=== PATIENT | female | born 1995 | race Caucasian/White ===

== ENCOUNTER 2017-10-15 06:29 | Emergency (ER) | payer BC, SELFPAY ==
[2017-10-15 06:34] VITALS: BP 122/73; PULSE 98; RESP 16; TEMP 36.7; O2SAT 97
--- NOTE | 2017-10-15 07:10 | ED.GENADUL_ITS ---
Disposition Clinical Impression: Superficial vein thrombosis Disposition: HOME Condition: Stable Instructions: Superficial Thrombophlebitis (ED), Deep Venous Thrombosis (ED), Rivaroxaban (By mouth) Additional Instructions: Please return immediately to the emergency department if you develop any new or worsening symptoms or if you become otherwise concerned. It is extremely important that you make an appointment to be seen by your primary care doctor within the next 1-2 weeks in follow-up for this visit. Please do not take aspirin, ibuprofen, or other nonsteroidal anti-inflammatory drugs while taking rivaroxaban. Prescriptions: Rivaroxaban [Xarelto] 10 mg PO DAILY #30 tablet Medical Decision Making - Lab Data Laboratory Tests 10/15/17 10/15/17 10/15/17 08:30 08:30 08:30 WBC 6.81 RBC 4.47 Hgb 13.6 Hct 39.8 MCV 89.0 MCH 30.4 MCHC 34.2 RDW 13.2 Plt Count 250 MPV 10.8 Immature Gran % 0.1 Neutrophils % 55.0 Lymphocytes % 32.9 Monocytes % 10.6 Eosinophils % 1.3 Basophils % 0.1 Absolute Neutrophils 3.74 Absolute Lymphocytes 2.24 Absolute Monocytes 0.72 H Absolute Eosinophils 0.09 Absolute Basophils 0.01 PT 9.3 INR 1.0 Sodium 139 Potassium 3.9 Chloride 106 Carbon Dioxide 21.9 Anion Gap 11.1 H BUN 14 Creatinine 0.64 Estimated GFR/1.73 m2 >= 60.00 Glucose 98 Calcium 8.8 Magnesium 2.2 Total Bilirubin 0.2 AST 21 ALT 49 Alkaline Phosphatase 99 Creatine Kinase 84 Total Protein 7.8 Albumin 3.9 Results reviewed for labs ordered during visit: Yes - Radiology Data Left lower extremity ultrasound per radiology: There is a roughly 10 cm area in the mid posterior tibial vein which does not show compression. The remaining deep venous system is free of thrombus. The saphenous vein is also free of thrombus. Impression: Area of noncompressibility in the mid posterior tibial vein consistent with calf vein thrombosis. - Medical Decision Making Maria Fernanda Lubin is a 22 y/o woman with h/o PCO S on Depo-Provera, hidradenitis suppurativa on Humira presenting to the emergency department with 5 days of unremitting left calf pain without history of trauma or other inciting event. On exam patient has diffuse tenderness of the left calf, DP pulses intact and symmetric, motor exam of bilateral lower extremities normal. Exam/history not consistent with cellulitis, compartment syndrome. Concern for DVT, possible myositis. Plan for screening labs, ultrasound. Labs nondiagnostic. Ultrasound shows 10 cm SVT. Given length of thrombus, patient is not considered low risk for thromboembolism, anticoagulation is indicated. Will start rivaroxaban. I did call patient's PCP, Tia Hernandez , and related to her patient's diagnosis and need for follow-up. Lengthy discussion with patient regarding rivaroxaban precautions, return to emergency room precautions and importance of outpatient follow-up with her PCP. Patient is amenable to the plan. History of Present Illness - General Chief complaint: Orthopedic Stated complaint: CALF PAIN Time Seen by Provider: 10/15/17 07:10 Source: patient, RN notes reviewed Mode of arrival: ambulatory Limitations: no limitations - History of Present Illness Initial comments: Maria Fernanda Lubin is a 22-year-old woman with history of hidradenitis suppurativa on Humira, PCOS on Depo-Provera shot, chronic migraines presenting to the emergency department with left-sided calf pain. Patient reports that 5 days ago patient woke up with pain in her left calf. Had had no symptoms prior to that. Patient reports the pain is constant and never goes away. It does occasionally worsen and become throbbing, but is always present as an ache in the back of her calf. Patient reports that pain has begun to radiate up into the back of her thigh. Pain is unchanged with ranging her left ankle or left knee. She has never had similar symptoms in the past. She denies having any other pain. There was no trauma or skin wound that patient can recall. Patient denies any fever in the past week. She denies shortness of breath, cough, change in appetite, vomiting, diarrhea, numbness, tingling, weakness. She feels otherwise well in her usual state of health. No recent surgery. No recent travel. No personal or family history of blood clots. Patient lives in [place] and has a PCP there, and is here today visiting her parents. - Related Data Medroxyprogesterone Acetate [Depo-Provera] 150 mg IM .[id number] 08/23/15 Adalimumab [Humira] 40 mg SC Q7D 12/14/16 Methocarbamol 750 mg PO Q6H PRN PRN #20 tablet 12/18/16 Albuterol Sulfate [Proair Hfa] 2 puff IH Q4H PRN #1 inhaler 12/20/16 Clindamycin Phosphate [CLINDAMYCIN PHOS 1%] 60 ml TP script 01/18/17 Lorazepam 0.5 mg PO DAILY #20 01/18/17 Citalopram [CeleXA] 10 mg PO DAILY #90 tab-cap 05/04/17 Rivaroxaban [Xarelto] 10 mg PO DAILY #30 tablet 10/15/17 Topiramate [Topamax] 50 mg PO HS 10/15/17 Allergies Allergy/AdvReac Type Severity Reaction Status Date / Time aloe vera Allergy Severe HIVES Unverified 10/15/17 06:42 Review of Systems Constitutional: denies: fever Eyes: denies: eye pain ENT: denies: ear pain, throat pain, dental pain Respiratory: denies: cough, shortness of breath Cardiovascular: denies: chest pain Endocrine: denies: increased hunger, increased thirst Gastrointestinal: denies: abdominal pain, vomiting, diarrhea Musculoskeletal: myalgia (left calf). denies: back pain, arthralgia Skin: denies: rash, lesions Neurological: denies: headache, weakness, numbness Past Medical History - Past Medical History Medical history: asthma Migraine headache, pilonidal cyst, hidradenitis suppurativa on Humira, latent TB , PCOS - Social History Smoking status: never smoker Alcohol use: occasionally Drug use: none General Exam - General Limitations: no limitations General appearance: alert, in no apparent distress, other (Pleasant, conversing normally, well and nontoxic appearing) - Head Head exam: Present: atraumatic, normocephalic, normal inspection - Eye Eye exam: Absent: scleral icterus, conjunctival injection Pupils: Absent: miosis, mydriatic - ENT ENT exam: Present: mucous membranes moist - Neck Neck exam: Present: normal inspection - Respiratory Respiratory exam: Present: normal lung sounds bilaterally. Absent: respiratory distress - Cardiovascular Cardiovascular Exam: Present: regular rate, normal rhythm, normal heart sounds - Extremities Exam Extremities exam: Present: normal inspection, full ROM (knee and ankle with painless FROM), tenderness (mild popliteal TTP. No thigh TTP. ), normal capillary refill, calf tenderness (Diffuse posterior calf tenderness with deep palpation. No posterior calf TTP to light palpation. ), other (no skin changes to LLE. Normal exam of the RLE. ). Absent: pedal edema, joint swelling - Back Exam Back exam: Present: normal inspection. Absent: rash noted - Neurological Exam Neurological exam: Present: alert, normal gait, other (Grossly nonfocal, normal tone). Absent: altered, motor sensory deficit (normal motor 5/5 b/l LEs. ) - Psychiatric Psychiatric exam: Present: normal affect, normal mood - Skin Skin exam: Present: warm, dry, intact, normal color. Absent: rash Course Vital Signs - 24 hr 10/15/17 06:34 Temperature 36.7 C Pulse 98 H Respiratory 16 Rate Blood Pressure 122/73 Pulse Oximetry 97
--- NOTE | 2017-10-15 07:25 | DI.REPORT_ITS ---
SYMPTOM/DIAGNOSIS: LEFT CALF PAIN, R/O DVT LEFT LOWER EXTREMITY ULTRASOUND: There is a roughly 10 cm area in the mid posterior tibial vein which does not show compression. The remaining deep venous system is free of thrombus. The saphenous vein is also free of thrombus. IMPRESSION: Area of non-compressibility in the mid posterior tibial vein consistent with calf vein thrombosis.
[2017-10-15 08:45] LABS: Abs Immature Grans 0.01 k/cumm (0.0-0.09); Absolute Basophil Count 0.01 k/cumm (0.0-0.2); Absolute Eosinophil Count 0.09 k/cumm (0.0-0.7); Absolute Lymphocyte Count 2.24 k/cumm (1.2-3.4); Absolute Monocyte Count 0.72 k/cumm (0.11-0.7); Absolute Neutrophil Count 3.74 k/cumm (1.2-6.7); Basophils % 0.1; Eosinophils % 1.3; HCT 39.8 % (36.0-46.0); HGB 13.6 g/dL (12.0-15.5); Immature Grans % 0.1; Lymphocytes % 32.9; Mean Corp. HGB Concentration 34.2 g/dL (32.0-36.0); Mean Corpuscular Hemoglobin 30.4 pg (27.0-33.0); Mean Platelet Volume 10.8 fL (8.0-11.0); Monocytes % 10.6; Platelet Count 250 x1000/uL (130-400); RBC 4.47 m/cumm (4.00-5.20); RBC Distribution Width 13.2 % (11.7-14.6); White Blood Cell Count 6.81 k/cumm (4.4-10.8)
[2017-10-15 08:58] LABS: Prothrombin Time 9.3 sec (9.3-10.8)
[2017-10-15 09:00] LABS: ALT 49 U/L (12-78); AST 21 U/L (15-37); Albumin 3.9 g/dL (3.4-5.0); Alkaline Phosphatase 99 U/L (46-116); Anion Gap 11.1 mmol/L (3-11); BUN 14 mg/dL (7-18); Bilirubin, Total 0.2 mg/dL (0.2-1.0); CO2 21.9 mmol/L (21.0-32.0); CREATININE 0.64 mg/dL (0.55-1.02); Calcium 8.8 mg/dL (8.5-10.1); Chloride 106 mmol/L (98-107); Creatine Kinase 84 U/L (26-192); Glucose 98 mg/dL (70-100); Magnesium 2.2 mg/dL (1.8-2.4); Potassium 3.9 mmol/L (3.5-5.1); Sodium 139 mmol/L (136-145); Total Protein 7.8 g/dL (6.4-8.2)
[2017-10-15] MEDS: Rivaroxaban 10 MG TABLET PO (09:30)
== END 2017-10-15 09:39 | disposition home or self-care (01) ==
PROVIDERS: Emergency Provider Student in an Organized Health Care Education/Training Program
DX: I82.812 Embolism and thrombosis of superficial veins of left lower extremity (principal)
CPT/HCPCS: 36415; 80053; 82550; 99284; 83735; 85025; 85610; 93971; 99285

== ENCOUNTER 2018-03-04 11:18 | Emergency (ER) | payer BC, SELFPAY ==
[2018-03-04 11:48] VITALS: BP 131/89; PULSE 100; RESP 20; TEMP 36.5; O2SAT 100
--- NOTE | 2018-03-04 12:08 | W.ED.GENAD ---
Discharge Plan Disposition Patient Disposition: HOME Condition: Stable Discharge Details Chief Complaint: RashLesion Clinical Impression: Rash Primary Care Provider: Lavinia,Local ED Provider: Cheyenne Turpin Home Meds and New Rx's Prescriptions: New triamcinolone acetonide 0.1 % cream 1 applic TP TID Qty: 30 RF: 0 Continued ProAir HFA 8.5 GM HFA aerosol inhaler 2 puff Inhalation Q4H PRN Qty: 1 RF: 3 lorazepam 0.5 MG tablet 0.5 mg PO DAILY Qty: 20 RF: 0 clindamycin phosphate 60 ML lotion 60 ml Topical RF: 0 citalopram 10 MG tablet 10 mg PO DAILY Qty: 90 RF: 3 medroxyprogesterone [Depo-Provera] 150 MG/ML suspension 150 mg IM .[id number] RF: 0 clindamycin-benzoyl peroxide [Benzaclin] 1-5 % Gel 1 appful Topical PRN PRNRF: 0 triamcinolone acetonide 0.1 % Lotion 1 appful Topical PRN PRNRF: 0 Humira 40 MG/0.8 ML syringe kit 40 mg Sub-Q Q7D RF: 0 Discontinued amitriptyline 50 mg Tablet 50 mg PO HS RF: 0 Discharge Instructions Instructions: Triamcinolone (On the skin), Acute Rash (ED) Additional Instructions: Please return immediately to the emergency department if you develop any new or worsening symptoms or if you become otherwise concerned. It is extremely important that you make an appointment to be seen by a computer networking instructor adjunct this week in follow-up for this visit. Discharge Data Discharge Date/Time-TO BE ENTERED AT DEPARTURE: 03/04/18 16:01 Medical Decision Making Maria Fernanda Lubin is a 23 y/o woman with h/o hidradenitis suppurativa who presented to the emergency department with rash since 02/26 without associated symptoms or clear triggers. On exam Pt is very well and non-toxic appearing. Rash consisting of well circumscribed erythematous plaques and papules without surrounding erythema over chest, scant erythematous papules to arms. No apparent involvement of the conjunctiva or oral mucosa on exam. Concern for contact dermatitis vs erythema multiforme vs wei cally syndrome. Exam/hx not c/w acute emergent infectious process or bacterial superinfection, TEN. Plan for screening labs, derm consult. Labs okay. Given concern for possible SJS, photo of rash without identifying information taken with Pt's permission. I discussed Pt presentation with Louie Bowman of dermatology at [facility], who reviewed the photo and recommended topical steroid cream, d/c amitriptyline, discharge, return to the ED for any worsening. No indication for admission/further emergent eval at this time. I had a lengthy discussion with Pt re: early SJS had not been ruled out, need to RTED immediately for any worsening, d/c amitriptyline, and importance of outpt f/u with dermatology this week. Pt verbalized understand of and was amenable to the plan. Medical Records Medical records reviewed: Yes I reviewed the patient's medical records. Lab Data Lab results reviewed: Yes I reviewed the patient's lab results. Laboratory Tests Range/Units 03/04/18 03/04/18 14:15 14:15 WBC (4.4-10.8) k/cumm 9.05 RBC (4.00-5.20) m/cumm 4.80 Hgb (12.0-15.5) g/dL 14.4 Hct (36.0-46.0) % 42.8 MCV (80-95) fL 89.2 MCH (27.0-33.0) pg 30.0 MCHC (32.0-36.0) g/dL 33.6 RDW (11.7-14.6) % 13.5 Plt Count (130-400) x1000/uL 317 MPV (8.0-11.0) fL 10.2 Sodium (136-145) mmol/L 140 Potassium (3.5-5.1) mmol/L 3.4 L Chloride (98-107) mmol/L 102 Carbon Dioxide (21.0-32.0) mmol/L 25.3 Anion Gap (3-11) mmol/L 12.7 H BUN (7-18) mg/dL 16 Creatinine (0.55-1.02) mg/dL 0.77 Estimated GFR/1.73 m2 (mL/min/1.73m2) >= 60.00 Glucose (70-100) mg/dL 81 Calcium (8.5-10.1) mg/dL 9.5 Total Bilirubin (0.2-1.0) mg/dL 0.6 AST (15-37) U/L 44 H ALT (12-78) U/L 99 H Alkaline Phosphatase (46-116) U/L 99 Total Protein (6.4-8.2) g/dL 8.6 H Albumin (3.4-5.0) g/dL 4.4 HPI General Mode of arrival: ambulatory. Date/Time Provider Initiated Documentation: 03/04/18 12:08. Limitations to Documentation: no limitations. Information obtained by: patient, RN notes reviewed and old records reviewed. HPI Narrative: Maria Fernanda Lubin is a 23 y/o woman with h/o hidradenitis suppurativa on humira, asthma presenting to the emergency department with rash. Pt reports that she has had an itchy rash since 02/26. Rash began on her chest, has been slowly spreading to her arms. Pt also reports that she has one spot on her upper eyelid that she noticed this am. All areas are itchy. She has had several areas in her mouth that feel sore, but has not noticed any visible changes to her mouth or lips. No eye redness or pain. Pt feels well and otherwise in her usual state of health. No new exposures, no recent travel, no recent illness. Pt does report that she starting taking amytriptyline for migraines in 12/20, and her dose was increased 2-3 weeks prior to onset of rash. No other new meds or med changes. No associated symptoms. Has been eating and drinking as usual. No drug use. Related Data Home Medications Medication Instructions Recorded Confirmed medroxyprogesterone [Depo-Provera] 150 mg IM .[id number] 08/23/15 03/04/18 Humira 40 mg SUB-Q Q7D 12/14/16 03/04/18 ProAir HFA 2 puff INHALATION Q4H PRN #1 12/20/16 03/04/18 inhaler clindamycin phosphate 60 ml TOPICAL script 01/18/17 lorazepam 0.5 mg PO DAILY #20 01/18/17 03/04/18 citalopram 10 mg PO DAILY #90 tab-cap 05/04/17 03/04/18 clindamycin-benzoyl peroxide 1 appful TOPICAL PRN PRN 03/04/18 03/04/18 [Benzaclin] triamcinolone acetonide 1 appful TOPICAL PRN PRN 03/04/18 03/04/18 triamcinolone acetonide 1 applic TP TID #30 gm 03/04/18 Previous Rx's Medication Instructions Recorded ProAir HFA 2 puff INHALATION Q4H PRN #1 12/20/16 inhaler lorazepam 0.5 mg PO DAILY #20 01/18/17 citalopram 10 mg PO DAILY #90 tab-cap 05/04/17 triamcinolone acetonide 1 applic TP TID #30 gm 03/04/18 Allergies Allergy/AdvReac Type Severity Reaction Status Date / Time aloe vera Allergy Severe HIVES Unverified 03/04/18 11:51 General Stated Complaint: RashLesion LOUISE: 4 Review of Systems Review of Systems Constitutional: denies fevers Eyes: denies eye pain ENT: denies facial pain, dental pain, sore throat Cardiovascular: denies chest pain, edema Respiratory: denies SOB, cough GI: denies abdominal pain, vomiting, diarrhea : denies flank pain MSK: denies back pain, neck pain, arthralgias, myalgias Skin: reports rash Neuro: denies headaches, lightheadedness, weakness PFSH Medical History Anxiety Asthma Heart murmur Migraine with aura Pilonidal cyst Surgical History Excision, Pilonidal Cyst (01/25/16) Tooth extraction Family History Mother No problems noted. Father Essential hypertension Heart disease Hyperlipidemia Grandfather Diabetes Personal history of malignant neoplasm Grandfather Essential hypertension Personal history of malignant neoplasm Heart disease Asthma Grandmother Personal history of malignant neoplasm Grandmother Depression Heart disease Maternal Aunt Down's syndrome Maternal Aunt Anxiety Maternal Uncle Substance abuse Other Alcohol abuse Mental disorder Myocardial infarction Social History Smoking/Tobacco Use Status: Never Exam Narrative Exam Narrative: Constitutional: well and [id number], pleasant, conversing normally HENT: head atraumatic, normocephalic normal inspection, mucous membranes moist, no lesions or scaling of oral mucosa or lips. Eyes: conjunctiva normal, sclera normal, pupils 3mm b/l Neck: no stridor, normal ROM, trachea midline Chest: see skin exam Resp: normal work of breathing, LCTAB Cardio: normal rate, normal rhythm, no murmur appreciated Back: normal inspection, no rash Skin: warm, dry, normal color, rash consisting of erythematous papules and plaques <2cm across chest, scant erythematous papules on arms and single papule on left upper outer eyelid. Chest lesions with central scaling, Pt reports that has occurred with itching. No vesicles or bullae. Neuro: alert, not altered, grossly non-focal, normal tone Ext: no edema Psych: normal mood, normal affect, normal behavior Course Vital Signs Temperature 36.5 C 03/04/18 11:48 Pulse 100 H 03/04/18 11:48 Respiratory Rate 20 03/04/18 11:48 Blood Pressure 131/89 03/04/18 11:48 Pulse Oximetry 100 03/04/18 11:48 Temperature 36.5 C 03/04/18 11:48 Temperature Source Temporal Artery Scan 03/04/18 11:48 Pulse 100 H 03/04/18 11:48 Respiratory Rate 20 03/04/18 11:48 Respiratory Effort Non-Labored 03/04/18 11:48 Blood Pressure 131/89 03/04/18 11:48 Blood Pressure Position Sitting 03/04/18 11:48 Pulse Oximetry 100 03/04/18 11:48 Oxygen Delivery Method Room Air 03/04/18 11:48 Oxygen Flow Rate 0 03/04/18 11:48 Pain Level 3 03/04/18 11:48
--- NOTE | 2018-03-04 13:54 | NUR.NOTE ---
This RN attempted IV access X2, unsuccessfully.
[2018-03-04 14:23] LABS: HCT 42.8 % (36.0-46.0); HGB 14.4 g/dL (12.0-15.5); Mean Corp. HGB Concentration 33.6 g/dL (32.0-36.0); Mean Corpuscular Volume 89.2 fL (80-95); Mean Platelet Volume 10.2 fL (8.0-11.0); Platelet Count 317 x1000/uL (130-400); RBC Distribution Width 13.5 % (11.7-14.6); White Blood Cell Count 9.05 k/cumm (4.4-10.8)
[2018-03-04 14:32] VITALS: BP 127/78; PULSE 71; RESP 16; TEMP 36.9; O2SAT 98
[2018-03-04 14:56] LABS: ALT 99 U/L (12-78); AST 44 U/L (15-37); Albumin 4.4 g/dL (3.4-5.0); Alkaline Phosphatase 99 U/L (46-116); Anion Gap 12.7 mmol/L (3-11); BUN 16 mg/dL (7-18); Bilirubin, Total 0.6 mg/dL (0.2-1.0); CO2 25.3 mmol/L (21.0-32.0); CREATININE 0.77 mg/dL (0.55-1.02); Calcium 9.5 mg/dL (8.5-10.1); Chloride 102 mmol/L (98-107); Glucose 81 mg/dL (70-100); Potassium 3.4 mmol/L (3.5-5.1); Sodium 140 mmol/L (136-145); Total Protein 8.6 g/dL (6.4-8.2)
== END 2018-03-04 16:01 | disposition home or self-care (01) ==
PROVIDERS: Emergency Provider Student in an Organized Health Care Education/Training Program
DX: R21 Rash and other nonspecific skin eruption (principal)
CPT/HCPCS: 36415; 80053; 85027; 99283

== ENCOUNTER 2022-07-17 08:22 | Day surgery (SDC) | payer OTHER, SELFPAY ==
[2022-07-17] VITALS (10 sets, daily range): BP systolic 89–109; BP diastolic 53–78; PULSE 62–85; RESP 12–20; TEMP 36.4–37.1; O2SAT 95–100; BMI 31.8
[2022-07-17] MEDS: Lactated Ringers 1,000 ML 100 ML IV (09:20)
--- NOTE | 2022-07-17 09:21 | W.ANESPRE ---
General Info Date of Service Date Performed: 07/17/22 Height: 5 ft 8 in Weight: 95.2 kg Body Mass Index (BMI): 31.8 Surgical Procedure: Operation Date: 07/17/22 11:25 Proposed Procedure Side Surgeon p Tonsillectomy & Adenoidectomy Tereso Jackson MD Meds Allergies and Home Medications Allergies Allergy/AdvReac Type Severity Reaction Status Date / Time aloe vera Allergy Severe HIVES Verified 07/17/22 08:57 citalopram Allergy Verified 07/17/22 08:57 doxycycline Allergy Verified 07/17/22 08:57 fluoxetine Allergy Verified 07/17/22 08:57 nickel Allergy Verified 07/14/22 12:22 pineapple Allergy Verified 07/14/22 12:22 spinach Allergy Verified 07/14/22 12:22 Home Medication Medication Instructions Recorded adalimumab 40 mg/0.8 mL 40 mg subcut Q7D 12/14/16 subcutaneous syringe kit (Humira) Saccharomyces boulardii 250 mg 250 mg PO BID 06/26/22 capsule (Daily Probiotic (S. boulardii)) alprazolam 0.5 mg tablet 0.5 mg PO QHS PRN anxiety 06/26/22 atomoxetine 25 mg capsule 25 mg PO ONCE 06/26/22 eptinezumab-jjmr 100 mg/mL 100 mg IV [id number] 06/26/22 intravenous solution (Vyepti) fexofenadine 180 mg tablet 180 mg PO DAILY 06/26/22 fluconazole 150 mg tablet 150 mg PO Q3D 06/26/22 (Diflucan) hydrocortisone 1 % topical 1 applic topical BID PRN itching 06/26/22 ointment (Anti-Itch (hydrocortisone)) levonorgestrel 17.5 mcg/24 hrs 1 device intrauterine ONCE 06/26/22 (5yrs) 19.5mg intrauterine device melatonin 3 mg capsule 3 mg PO HS PRN 06/26/22 multivitamin (Daily Multi-Vitamin 1 tab PO DAILY 06/26/22 tablet) ondansetron HCl 4 mg tablet 4 mg PO Q8H 06/26/22 ubrogepant 100 mg tablet 100 mg PO ONCE 06/26/22 valacyclovir 500 mg tablet 500 mg PO DAILY 06/26/22 Current Visit Medications: Current Medications Generic Name Dose Route Start Last Admin Trade Name Freq PRN Reason Stop Dose Admin Ringer's Solution 1,000 mls @ 100 mls/hr 07/17/22 06:00 07/17/22 09:20 IV 08/13/22 23:59 100 mls/hr INFUSION SHANIQUA Administration Cefazolin Sodium/Dextrose 2 gm in 50 mls @ 100 mls/hr 07/17/22 06:00 Ancef Duplex IVPB 08/13/22 23:59 PREOP SHANIQUA Tranexamic Acid 1,000 mg/ 60 mls @ 360 mls/hr 07/17/22 06:00 Sodium Chloride IVPB 07/17/22 18:00 PREOP SHANIQUA IV Miscellaneous Supplies 1 each 07/17/22 06:00 Iv Access IV 08/13/22 23:59 DIRECTED SHANIQUA Sodium Chloride 0 ml 07/17/22 06:00 Normal Saline Flush 10 Ml Syr IV 08/13/22 23:59 PRN PRN Sodium Chloride 0 ml 07/17/22 06:00 Normal Saline 10 Ml Vial IJ 08/13/22 23:59 DIRECTED PRN Sterile Water 0 ml 07/17/22 06:00 Water,Injection,Sterile 10 Ml Vial IJ 08/13/22 23:59 DIRECTED PRN PFSH Medical History Medical History ADHD (attention deficit hyperactivity disorder) Anxiety Anxiety disorder Asthma Dysmenorrhea Erythema multiforme bullosum Heart murmur Per pt. 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 Major depressive disorder with single episode Migraine with aura Mild intermittent asthma without complication PCOS (polycystic ovarian syndrome) Pilonidal cyst Presence of IUD Suppurative hidradenitis TMJ arthralgia Tonsillar enlargement Surgical History Surgical History Excision, Pilonidal Cyst (01/25/16) Tooth extraction extraction 4 wisdom teeth Tobacco Smoking/Tobacco Use Status: Never Alcohol Alcohol Intake: current Alcohol intake frequency: a few times a month Substance Use Substance use: Never Substance use type: does not use Vital Signs and Lab Results Vital Signs Most Recent Vital Signs in EMR: Most Recent Vital Signs Temp Pulse Resp BP Pulse Ox 36.4 C L 85 18 104/62 100 07/17/22 09:02 07/17/22 09:02 07/17/22 09:02 07/17/22 09:02 07/17/22 09:02 Lab Results Blood Type / Crossmatch: No Data to Display Complete Blood Count: No Data to Display Complete Metabolic Panel: No Data to Display Liver Function Panel: No Data to Display Coagulation Panel: No Data to Display Cardiac Panel: No Data to Display Arterial Blood Gas: No Data to Display Venous Blood Gas: No Data to Display Pancreas Panel: No Data to Display Thyroid Panel: No Data to Display Infectious Disease: No Data to Display Blood Cultures: No Data to Display Toxicology Panel: No Data to Display Panel: No Data to Display Anesthesia Assessment and Plan Anesthesia History Personal History: No History of Anesthesia Complications Family History: No Family History of Anesthesia Complications Exercise Tolerance Exercise Tolerance: Metabolic Equivalents>4 Cardiac & Pulmonary Exam Cardiac Exam: Normal S1/S2 Heart Sounds Pulmonary Exam: Clear Bilateral Breath Sounds Implantable Cardiac Device Does patient have a Pacemaker or an ICD?: No Airway Exam Known Difficult Airway: No Mallampati Class: 2 Mouth Opening: Normal (> 3cm) Thyromental Distance: Greater than 3 cm Neck Range of Motion: Full ROM Neck Circumference: Normal Teeth Condition: Normal Dentition ASA Classification ASA Score: ASA 2 Emergency Case?: No NPO Status NPO Status: NPO Clears >2 hours, Solids >8 hours Status Status: Pt. refuses testing, she was counseled on anesthesia risks Anesthesia Plan Resuscitation Status: Full Code Anesthesia Technique: General Anesthesia Airway Planned: Endotracheal Tube Monitors Used: Standard Monitors Preoperative Comments:: 27 yo female for TA. Sig PMHx: migraine, asthma, ADHD, anxiety, depression, never smoker, occ EtOH. Has had a cough for months, still has the slight tail end of it.
--- NOTE | 2022-07-17 11:42 | PDOC.DSDIS_ITS ---
Date of service: 07/17/22 Time of Service: 11:44 Discharge Plan Disposition Patient Disposition: Home Discharge Details Reason For Visit: Tonsillectomy Attending Provider: Tereso Jackson Primary Care Provider: Genia Cadena Home Meds and New Rx's Prescriptions: New amoxicillin 400 mg/5 mL suspension for reconstitution 800 mg PO BID 10 Days Qty: 200 0RF No Action hydrocortisone [Anti-Itch (HC)] 1 % ointment 1 applic topical BID PRN (Reason: itching) levonorgestrel 17.5 mcg/24 hrs (5 yrs) 19.5 mg intrauterine device 1 device intrauterine ONCE Rx Instructions: as a single dose melatonin 3 mg capsule 3 mg PO HS PRN ubrogepant 100 mg tablet 100 mg PO ONCE Rx Instructions: as a single dose; may repeat once in >=2 hours after first dose if needed fexofenadine 180 mg tablet 180 mg PO DAILY ondansetron HCl 4 mg tablet 4 mg PO Q8H alprazolam 0.5 mg tablet 0.5 mg PO QHS PRN (Reason: anxiety) valacyclovir 500 mg tablet 500 mg PO DAILY Vyepti 100 mg/mL solution 100 mg IV [id number] Rx Instructions: administer over 30 mins Saccharomyces boulardii [Daily Probiotic (S. boulardii)] 250 mg capsule 250 mg PO BID multivitamin [Daily Multi-Vitamin] Tablet 1 tab PO DAILY atomoxetine 25 mg capsule 25 mg PO ONCE fluconazole [Diflucan] 150 mg tablet 150 mg PO Q3D Humira 40 MG/0.8 ML syringe kit 40 mg Sub-Q Q7D Discharge Instructions Additional Instructions: My cell phone number is [phone]. Please call with any concerns or problems. If you are unable to reach me, and feel this is an emergency, please proceed to the emergency room or call 911 Stand Alone Forms: ENT- T&A Instr. Renetta Referrals: Tereso Jackson MD [ [facility] STAFF PHYSICIAN] - (1 month, please call for appointment prior to patient's departure) Discharge Orders Discharge Orders: Discharge Order (Routine); Ordered 07/17/22 Ordered By: Tereso Jackson
[2022-07-17] MEDS: ceFAZolin 2 GM/50 ML BAG IVPB (11:50)
--- NOTE | 2022-07-17 12:15 | TONSIL_PTH ---
PATIENT: Maria Fernanda Lubin LOC: [facility] U#:[id number] AGE/SX: 27/F ROOM: RE07/17/[address]: Tereso Jackson MD : 1995 BED: DIS: 07/17/2022 SPEC #: [id number] RECD: 07/17/22 13:17 STATUS: MIRNA REQ #: [id number] SYD: 07/17/22 12:[address]: Tereso Jackson DEPT: Surgical Specimen RECD BY: Debo Champagne ENTERED: 07/17/22 13:17 SP TYPE: TONSIL OTHR DR: Genia Cadena Tissues: 1 - TONSIL AGE 17 & OVER 2 - TONSIL AGE 17 & OVER Procedures: GROSS AND MICRO LEVEL 3 Comments: [id number]
--- NOTE | 2022-07-17 12:39 | W.PM.OP ---
Date of service: 07/17/22 Time of Service: 12:39 Operative Note Operative Note DATE OF PROCEDURE: 07/17/22 PRE-OP DIAGNOSIS: Chronic tonsillitis, tonsillar hypertrophy POST-OP DIAGNOSIS: same PROCEDURE: Tonsillectomy SURGEON: Tereso Jackson ANESTHESIA TYPE: General LMA/ETT Refer to Anesthesia Record ESTIMATED BLOOD LOSS: 100 PATHOLOGY: other (Tonsils) COMPLICATIONS: None Patient was transported to: PACU Patient's condition: stable Indications: Patient with the above problems. This is proving medically recalcitrant and chronic. Options were explained to the family regarding further management. She elected to develop a procedure. Consent was filled out and signed prior to surgery. H&P was reviewed. Risks of narcotics were discussed including addiction and respiratory depression. Findings: 4+ tonsils, atrophic adenoids, palate intact to inspection and palpation. Procedure Description: After obtaining an adequate level of general endotracheal anesthesia the patient was positioned in a supine position and prepped and draped in appropriate fashion. Valencia Devon mouthgag was carefully introduced into the oral cavity and opened revealing soft and hard palate which were examined revealing no evidence of recurrent cleft palate. Each tonsil was pulled medially and posteriorly and 0.25 with 1: 200,000 Marcaine with epinephrine was injected in the submucosal plane around the tonsils bilaterally. Adenoids were examined revealing no significant adenoid. 12 blade was used to incise mucosa along the superior, anterior, and posterior edges of the tonsil. A Meliza elevator was used to disarticulate the tonsil from the superior tonsillar fossa and then a Montalvo blade used to strip the tonsil free from the tonsillar fossa down to the inferior pole at which point, tonsillar snare was used to amputate the tonsil from the tonsillar fossa. Once has been accomplished bilaterally electrocautery suction tip catheter set on 15 W coagulation was used to achieve relative hemostasis. Valsalva was performed revealing no further bleeding. Valencia-Devon mouth gag was relaxed and removed revealing no significant bleeding. Valencia Devon mouthgag was then relaxed and removed and the patient was then awakened and extubated by anesthesia and taken recovery room in stable condition. I was present throughout the entire case.
[2022-07-17] MEDS: HYDROmorphone 2 MG/ML SYR IVP (13:04)
[2022-07-17] MEDS: Normal Saline 10 ML VIAL IJ (13:04)
--- NOTE | 2022-07-17 13:17 | W.ANESPOSTOP ---
Postoperative Evaluation Date, Time and Location Date Performed: 07/17/22 Time Performed: 13:17 Patient Location: PACU Vital Signs Most Recent Imported Vital Signs: Most Recent Vital Signs Temp Pulse Resp BP Pulse Ox 37.1 C 66 12 98/57 L 95 07/17/22 13:15 07/17/22 13:15 07/17/22 13:15 07/17/22 13:15 07/17/22 13:15 Pain Score Most Recent Pain Score: Most Recent Pain Score Pain Level 3 07/17/22 13:15 Assessment Mental Status: Awake (Alert & Oriented to Patient Baseline) Airway and Respiratory Function: Patent airway with normal (patient baseline) respiratory exam Cardiovascular Function: Hemodynamically Stable Hydration Status: Adequately Hydrated Nausea & Vomiting: No Nausea or Vomiting Pain: Pain is tolerable per patient Peripheral Nerve Block: Patient did not receive a nerve block
== END 2022-07-17 14:10 | disposition home or self-care (01) ==
PROVIDERS: PCP Nurse Practitioner; Visit Provider Otolaryngology
PROC: (CPT 42826; principal; 2022-07-17 11:15)
DX: J35.01 Chronic tonsillitis (principal)
CPT/HCPCS: 42826; 88304; J0690; J1100; J1170; J2405; J3475